=== PATIENT | female | born 1945 | race Caucasian/White ===

== ENCOUNTER → 2017-03-15 | Outpatient (CLI) | payer MEDICARE | END | disposition home or self-care (01) | LOC: CFH 10:15 | PROVIDERS: ATTEND Internal Medicine | DX: Z12.31 Encounter for screening mammogram for malignant neoplasm of breast (principal) | CPT/HCPCS: G0202 ==

== ENCOUNTER → 2018-02-28 | Outpatient (CLI) | payer MEDICARE | END | disposition home or self-care (01) | LOC: CFH 15:36 | PROVIDERS: ATTEND Internal Medicine Critical Care Medicine | DX: I08.0 Rheumatic disorders of both mitral and aortic valves (principal); I10 Essential (primary) hypertension; J44.9 Chronic obstructive pulmonary disease, unspecified | CPT/HCPCS: 93306 ==

== ENCOUNTER → 2018-03-05 | Outpatient (CLI) | payer MEDICARE | LOC: CFH 13:34 | PROVIDERS: ATTEND Internal Medicine Critical Care Medicine | DX: R06.02 Shortness of breath (principal); M79.89 Other specified soft tissue disorders ==

== ENCOUNTER → 2018-03-14 | Outpatient (CLI) | payer MEDICARE | END | disposition home or self-care (01) | LOC: CFH 14:10 | PROVIDERS: ATTEND Nurse Practitioner | DX: M19.171 Post-traumatic osteoarthritis, right ankle and foot (principal) ==

== ENCOUNTER → 2018-07-03 | Outpatient (CLI) | payer MEDICARE | END | disposition home or self-care (01) | LOC: CFH 11:27 | PROVIDERS: ATTEND Nurse Practitioner | DX: Z12.31 Encounter for screening mammogram for malignant neoplasm of breast (principal) | CPT/HCPCS: 77067 ==

== ENCOUNTER → 2018-07-16 | Outpatient (CLI) | payer MEDICARE | END | disposition home or self-care (01) | LOC: CFH 14:46 | PROVIDERS: ATTEND Family Medicine | DX: R92.8 Other abnormal and inconclusive findings on diagnostic imaging of breast (principal) | CPT/HCPCS: 77065 ==

== ENCOUNTER → 2018-09-17 | Outpatient (CLI) | payer MEDICARE ==
[~2018-09-17] MED LIST: LIDOCAINE 1%, 20ML ONE; LIDOCAINE 1%-EPI 1:100K, 20ML ONE; SODIUM BICARBONATE 4.0%, 5ML ONE
== END | disposition home or self-care (01) ==
LOC: CFH 10:16
PROVIDERS: ATTEND Family Medicine
DX: D24.2 Benign neoplasm of left breast (principal)
CPT/HCPCS: 19081; 77065; 88305; J3490; 82962

== ENCOUNTER → 2018-10-02 | Outpatient (CLI) | payer MEDICARE ==
[~2018-10-02] MED LIST changes: +ACET325T14 PO; +AMLO10TA8 PO; -LIDOCAINE 1%, 20ML ONE; -LIDOCAINE 1%-EPI 1:100K, 20ML ONE; +LOSA100T14 PO; -SODIUM BICARBONATE 4.0%, 5ML ONE; +TRAM50TA2 PO; +UMEC1DIS INH
[2018-10-02 14:55] LABS: ALANINE AMINOTRANSFERASE 29 U/L (12-78); ALBUMIN 3.5 g/dL (3.4-5.0); ANION GAP 7 mmol/L (5-15); CALCIUM 9.7 mg/dL (8.5-10.1); CHLORIDE 109 mmol/L (98-107)
[2018-10-02 14:58] LABS: ALKALINE PHOSPHATASE 128 U/L (45-117); BILIRUBIN,TOTAL 0.8 mg/dL (0.2-1.0); CREATININE 0.83 mg/dL (0.55-1.02); TOTAL PROTEIN 7.3 g/dL (6.4-8.2)
== END | disposition home or self-care (01) ==
LOC: STAR 13:02
PROVIDERS: ATTEND Orthopaedic Surgery
DX: Z01.818 Encounter for other preprocedural examination (principal); M19.171 Post-traumatic osteoarthritis, right ankle and foot
CPT/HCPCS: 36415; 80053; 93005

== ENCOUNTER 2018-11-03 08:24 | Inpatient (IN) | payer MEDICARE ==
[~2018-11-03] VITALS: Ht 167.6 cm; Wt 80.2 kg
[~2018-11-03 08:24] MED LIST changes: +ALBUTEROL INH
[2018-11-03 08:58] LABS: BASOPHILS # (AUTO) 0.02 x10^3/uL (0-0.1); BASOPHILS % (AUTO) 0 % (0-1); EOSINOPHILS # (AUTO) 0.02 x10^3/uL (0-0.4); EOSINOPHILS % (AUTO) 0 % (1-7); LYMPHOCYTES # (AUTO) 0.82 x10^3/uL (1-3.4); LYMPHOCYTES % (AUTO) 6 % (22-44); MD NO; MEAN CORPUSCULAR HEMOGLOBIN 32.5 pg (27.0-34.8); MEAN CORPUSCULAR HGB CONC 33.4 g/dL (32.4-35.8); MEAN CORPUSCULAR VOLUME 97.3 fL (80-100); MEAN PLATELET VOLUME 7.9 fL (7.4-10.4); MONOCYTES # (AUTO) 0.64 x10^3/uL (0.2-0.8); MONOCYTES % (AUTO) 5 % (2-9); NEUTROPHILS # (AUTO) 12.41 x10^3/uL (1.8-6.8); NEUTROPHILS % (AUTO) 89 % (42-75); PLATELET COUNT 441 x10^3/uL (130-400); RED BLOOD COUNT 4.43 x10^6/uL (3.82-5.3)
[2018-11-03] MEDS ORDERED: MORPHINE SULFATE 4 MG/ML, 1ML ONE ×2 (08:59→12:44)
[2018-11-03] MEDS ORDERED: ACETAMINOPHEN 500 MG TABLET PO ONE (09:00)
[2018-11-03] MEDS ORDERED: SODIUM CHLORIDE FLUSH 10ML SYR IVF ONE (09:00)
[2018-11-03] MEDS ORDERED: ACETAMINOPHEN 500 MG TABLET ONE (09:00)
[2018-11-03] MEDS: MORPHINE SULFATE 4 MG/ML, 1ML IVPush PRN ×3 (09:04→12:48)
[2018-11-03 09:09] LABS: ALBUMIN 2.5 g/dL (3.4-5.0); ANION GAP 9 mmol/L (5-15); CALCIUM 9.3 mg/dL (8.5-10.1); CHLORIDE 105 mmol/L (98-107); D-DIMER 4.3 ug/mlFEU (0.00-0.52); INTERNATIONAL NORMALIZED RATIO 1.15 (0.93-1.1)
--- NOTE | 2018-11-03 09:09 | NUR ---
Recieved report from SOLANGE Espinoza. All questions answered. Pt resting on gurney connected to NIBP, property assessment monitor, and spo2%. Pt c/o left upper flank pain post surgery on right foot. Pt has been on 3-4 L of oxygen on CPAP at home and was at 85%. Pt is on 4 L oxygen via nasal cannula and is at 96%. Pt is hot to touch and febrile with 102.1 F rectal temp. Provided medications per EMAR. ED MD verbal order stated to "provide your descretion of pain medication to pt regarding mg." Discussed with pt. Pt states, "Lets start of with 2 mg of the pain medication, if I need more we can use the rest." ED MD aware. Provided 2mg of pain medication per EMAR. Call light within reach. All safety measures in place. NADN. Pt waiting for CT.
[2018-11-03 09:17] LABS: ALANINE AMINOTRANSFERASE 21 U/L (12-78); ALKALINE PHOSPHATASE 601 U/L (45-117); BILIRUBIN,TOTAL 1.4 mg/dL (0.2-1.0); CREATININE 0.81 mg/dL (0.55-1.02); TOTAL PROTEIN 7.7 g/dL (6.4-8.2); TROPONIN I < 0.015 ng/mL (0.000-0.045)
[2018-11-03] MEDS ORDERED: AZITHROMYCIN 500 MG in SODIUM CHLORIDE 0.9% 250 ML IV ONE (09:30)
[2018-11-03] MEDS ORDERED: CEFTRIAXONE PMX 1GM/50ML 50 ML IV ONE (09:30)
--- NOTE | 2018-11-03 09:32 | NUR ---
Discussed plan of care with ED MD. PT's vital signs not indicative of starting PIV fluids at this time, per ED MD. Waiting for blood cultures, lactic acid, and procalcitonin labs to result per ED MD. Per ED MD, "do not give PIV fluids at this time."
[2018-11-03] MEDS ORDERED: CEFTRIAXONE PMX 1GM/50ML 50 ML ONE (09:49)
--- NOTE | 2018-11-03 10:02 | NUR ---
Provided remaining 2mg of pain medication per EMAR per pt request. ED MD aware. Pt has PIV medicaitons infusing per EMAR. Pt transported on gurney to CT at this time.
[2018-11-03] MEDS ORDERED: OMNIPAQUE 350 MG/ML, 100ML BOTTLE ONE (10:15)
--- NOTE | 2018-11-03 10:17 | NUR ---
Pt back to room from CT. Pt reconnected to all monitors. Pt states, "I am more comfortable now." NADN. No needs requested. All safety measures in place. Call light within reach.
[2018-11-03 10:49] LABS: RAPID INFLUENZA A Negative (Negative); RAPID INFLUENZA B Negative (Negative)
[2018-11-03] MEDS ORDERED: APIXABAN 5 MG TABLET ONE (11:14)
[2018-11-03] MEDS: APIXABAN 5 MG TABLET PO SCH ×2 (11:29→23:35)
[2018-11-03] MEDS ORDERED: SODIUM CHLORIDE 0.9% 1,000ML IVBOLUS ONE (11:30)
--- NOTE | 2018-11-03 12:41 | NUR ---
PIV medications and PIV NS bolous finished infusing per EMAR. Provided pt with hot blanka per request. Pt appreciative.
[2018-11-03] MEDS: SODIUM CHLORIDE 0.9% 1,000 ML IV SCH ×2 (12:58→22:52)
[2018-11-03] MEDS: AZITHROMYCIN 500 MG in SODIUM CHLORIDE 0.9% 250 ML IV SCH (13:00)
[2018-11-03] MEDS ORDERED: LABETALOL 5MG/ML, 20ML IVPush PRN (13:00)
[2018-11-03] MEDS ORDERED: ACETAMINOPHEN 325 MG TABLET PO PRN (13:00)
[2018-11-03] MEDS ORDERED: BISACODYL 10 MG SUPP PR PRN (13:00)
[2018-11-03] MEDS ORDERED: ENALAPRILAT 1.25 MG/ML, 2ML IVPush PRN (13:00)
[2018-11-03] MEDS ORDERED: POLYETHYLENE GLYCOL 17 GM PACKET PO PRN (13:00)
[2018-11-03] MEDS: CEFTRIAXONE PMX 1GM/50ML 50 ML IV SCH (13:00)
[2018-11-03 13:14] LABS: GAMMA GLUTAMYL TRANSPEPTIDASE 184 U/L (5-55)
[2018-11-03 13:18] LABS: FREE T4 (FREE THYROXINE) 1.53 ng/dL (0.76-1.46); TROPONIN I < 0.015 ng/mL (0.000-0.045)
--- NOTE | 2018-11-03 14:09 | NUR ---
Pt up to bedside commode one stand by assistance. NADN. Pt back to [facility] connected to SPO2% and teletypesetter monitor. Pt asleep on [place]. Call light within reach. All safety measures in place. No needs expressed at this time.
--- NOTE | 2018-11-03 14:17 | NUR ---
Provided report to SOLANGE Gil. All questions answered. Pt ready to transfer to floor from ED.
--- NOTE | 2018-11-03 14:30 | NUR ---
Pt transported to floor from ED and left with all personal belongings.
[2018-11-03] MEDS ORDERED: BACLOFEN 10 MG TABLET ONE (15:18)
[2018-11-03] MEDS: BACLOFEN 10 MG TABLET PO PRN ×2 (15:23→23:36)
[2018-11-03 15:27] VITALS: BP 108/65
[2018-11-03] MEDS: GABAPENTIN 100 MG CAPSULE PO PRN ×2 (17:58→23:35)
[2018-11-03 18:39] LABS: TROPONIN I < 0.015 ng/mL (0.000-0.045)
[2018-11-03 19:48] VITALS: BP 104/66
[2018-11-03] MEDS ORDERED: ALBUTEROL/IPRATROPIUM 2.5MG/0.5MG, 3 ML ONE (20:01)
[2018-11-03 21:30] LABS: MICROSCOPIC NOT IND
[2018-11-03 21:34] LABS: CULTURE INDICATED? NO
[2018-11-03] MEDS: TEMAZEPAM 15 MG CAPSULE PO PRN (23:35)
[2018-11-03] MEDS: ALBUTEROL/IPRATROPIUM 2.5MG/0.5MG, 3 ML NPPB SCH (23:50)
[2018-11-04 02:41] VITALS: BP 108/71
[2018-11-04 05:34] LABS: BASOPHILS # (AUTO) 0.05 x10^3/uL (0-0.1); BASOPHILS % (AUTO) 1 % (0-1); EOSINOPHILS # (AUTO) 0.21 x10^3/uL (0-0.4); EOSINOPHILS % (AUTO) 2 % (1-7); LYMPHOCYTES # (AUTO) 1.66 x10^3/uL (1-3.4); LYMPHOCYTES % (AUTO) 17 % (22-44); MD NO; MEAN CORPUSCULAR VOLUME 97.2 fL (80-100); MEAN PLATELET VOLUME 7.9 fL (7.4-10.4); MONOCYTES # (AUTO) 0.75 x10^3/uL (0.2-0.8); MONOCYTES % (AUTO) 8 % (2-9); NEUTROPHILS # (AUTO) 7.05 x10^3/uL (1.8-6.8); NEUTROPHILS % (AUTO) 73 % (42-75); PLATELET COUNT 364 x10^3/uL (130-400); RED BLOOD COUNT 3.62 x10^6/uL (3.82-5.3); RED CELL DISTRIBUTION WIDTH 13.8 % (9.6-15.2)
[2018-11-04 05:36] LABS: ANION GAP 6 mmol/L (5-15); CHLORIDE 109 mmol/L (98-107)
[2018-11-04 05:41] LABS: ALANINE AMINOTRANSFERASE 16 U/L (12-78); ALKALINE PHOSPHATASE 490 U/L (45-117); BILIRUBIN,TOTAL 0.8 mg/dL (0.2-1.0); CALCIUM 8.5 mg/dL (8.5-10.1); CHOL/HDL RATIO 5.4; CHOLESTEROL, TOTAL 114 mg/dL (140-239); CREATININE 0.72 mg/dL (0.55-1.02); HDL CHOL % 18 % (28-40); HDL CHOLESTEROL (DIRECT) 21 mg/dL (40-60); LDL CHOLESTEROL,CALCULATED 70 mg/dL (54-169); LDL/HDL RATIO 3.3 (0.5-3.0); TOTAL PROTEIN 6.4 g/dL (6.4-8.2); TRIGLYCERIDES 113 mg/dL (50-200); VLDL CHOLESTEROL 23 mg/dL (0-25)
[2018-11-04] MEDS ORDERED: MAGNESIUM SULFATE 3 GM in SODIUM CHLORIDE 0.9% 100 ML IV ONE (07:00)
[2018-11-04] MEDS: ALBUTEROL/IPRATROPIUM 2.5MG/0.5MG, 3 ML NPPB SCH ×5 (07:40→23:00)
[2018-11-04 08:05] VITALS: BP 104/65
[2018-11-04] MEDS: (Umeclidinium Brm/Vilanterol Tr (Anoro Ellipta 62.5-25 Mcg Inh HOMEMEDPO SCH (09:00)
[2018-11-04] MEDS: APIXABAN 5 MG TABLET PO SCH ×2 (09:43→20:42)
[2018-11-04] MEDS: GABAPENTIN 100 MG CAPSULE PO PRN ×2 (09:43→18:01)
[2018-11-04] MEDS: BACLOFEN 10 MG TABLET PO PRN ×2 (09:46→18:01)
[2018-11-04] MEDS: CEFTRIAXONE PMX 1GM/50ML 50 ML IV SCH (13:14)
[2018-11-04] MEDS: AZITHROMYCIN 500 MG in SODIUM CHLORIDE 0.9% 250 ML IV SCH (14:18)
[2018-11-04 16:00] VITALS: BP 105/70
[2018-11-04] MEDS: SODIUM CHLORIDE 0.9% 1,000 ML IV SCH (19:54)
[2018-11-04 19:57] VITALS: BP 105/70
[2018-11-05] MEDS: GABAPENTIN 100 MG CAPSULE PO PRN ×3 (01:04→21:19)
[2018-11-05] MEDS: TEMAZEPAM 15 MG CAPSULE PO PRN ×2 (01:05→21:18)
[2018-11-05 01:52] VITALS: BP 129/60
[2018-11-05] MEDS: SODIUM CHLORIDE 0.9% 1,000 ML IV SCH ×2 (05:46→15:23)
[2018-11-05] MEDS: ALBUTEROL/IPRATROPIUM 2.5MG/0.5MG, 3 ML NPPB SCH ×5 (06:00→21:49)
[2018-11-05 06:43] LABS: ALBUMIN 1.8 g/dL (3.4-5.0); ANION GAP 8 mmol/L (5-15); CALCIUM 8.3 mg/dL (8.5-10.1); CHLORIDE 114 mmol/L (98-107); CREATININE 0.48 mg/dL (0.55-1.02)
[2018-11-05] MEDS ORDERED: GUAIFENESIN 100 MG/5 ML, 10ML UDC PO PRN (07:30)
[2018-11-05 08:27] VITALS: BP 116/73
[2018-11-05] MEDS: BACLOFEN 10 MG TABLET PO PRN ×2 (08:39→21:19)
[2018-11-05] MEDS: APIXABAN 5 MG TABLET PO SCH ×2 (08:40→21:19)
[2018-11-05] MEDS: (Umeclidinium Brm/Vilanterol Tr (Anoro Ellipta 62.5-25 Mcg Inh HOMEMEDPO SCH (09:00)
[2018-11-05 13:17] VITALS: BP 121/65
[2018-11-05 13:29] VITALS: BP 121/65
[2018-11-05] MEDS: CEFTRIAXONE PMX 1GM/50ML 50 ML IV SCH (14:37)
[2018-11-05] MEDS: OXYcodone IR 5MG TABLET PO PRN (14:44)
[2018-11-05] MEDS: AZITHROMYCIN 500 MG in SODIUM CHLORIDE 0.9% 250 ML IV SCH (15:23)
[2018-11-05] MEDS: DOCUSATE 100 MG CAPSULE PO PRN ×2 (15:35→21:19)
[2018-11-05 19:05] VITALS: BP 130/65
[2018-11-06 00:50] VITALS: BP 136/75
[2018-11-06] MEDS: SODIUM CHLORIDE 0.9% 1,000 ML IV SCH (01:46)
[2018-11-06 06:33] LABS: BASOPHILS # (AUTO) 0.06 x10^3/uL (0-0.1); BASOPHILS % (AUTO) 1 % (0-1); EOSINOPHILS # (AUTO) 0.27 x10^3/uL (0-0.4); EOSINOPHILS % (AUTO) 5 % (1-7); LYMPHOCYTES # (AUTO) 1.55 x10^3/uL (1-3.4); LYMPHOCYTES % (AUTO) 26 % (22-44); MD NO; MEAN CORPUSCULAR HEMOGLOBIN 33.3 pg (27.0-34.8); MEAN CORPUSCULAR HGB CONC 34.4 g/dL (32.4-35.8); MEAN CORPUSCULAR VOLUME 96.8 fL (80-100); MEAN PLATELET VOLUME 7.8 fL (7.4-10.4); MONOCYTES # (AUTO) 0.56 x10^3/uL (0.2-0.8); MONOCYTES % (AUTO) 9 % (2-9); NEUTROPHILS # (AUTO) 3.56 x10^3/uL (1.8-6.8); NEUTROPHILS % (AUTO) 59 % (42-75); PLATELET COUNT 316 x10^3/uL (130-400); RED BLOOD COUNT 3.37 x10^6/uL (3.82-5.3); RED CELL DISTRIBUTION WIDTH 13.8 % (9.6-15.2)
[2018-11-06 06:45] LABS: ANION GAP 7 mmol/L (5-15); CALCIUM 8.4 mg/dL (8.5-10.1); CHLORIDE 115 mmol/L (98-107)
[2018-11-06 06:49] LABS: ALANINE AMINOTRANSFERASE 11 U/L (12-78); ALKALINE PHOSPHATASE 364 U/L (45-117); BILIRUBIN,TOTAL 1.1 mg/dL (0.2-1.0); CREATININE 0.58 mg/dL (0.55-1.02); TOTAL PROTEIN 5.7 g/dL (6.4-8.2)
[2018-11-06] MEDS: ALBUTEROL/IPRATROPIUM 2.5MG/0.5MG, 3 ML NPPB SCH ×3 (07:25→14:20)
[2018-11-06 07:54] VITALS: BP 147/75
[2018-11-06] MEDS: (Umeclidinium Brm/Vilanterol Tr (Anoro Ellipta 62.5-25 Mcg Inh HOMEMEDPO SCH (09:00)
[2018-11-06] MEDS: DOCUSATE 100 MG CAPSULE PO PRN (10:26)
[2018-11-06] MEDS: GABAPENTIN 100 MG CAPSULE PO PRN ×2 (10:35→17:08)
[2018-11-06] MEDS: APIXABAN 5 MG TABLET PO SCH (10:35)
[2018-11-06] MEDS: BACLOFEN 10 MG TABLET PO PRN ×2 (10:36→17:08)
[2018-11-06] MEDS ORDERED: AMOX1TAB64 PO (13:08)
[2018-11-06] MEDS ORDERED: BACL-19 PO (13:08)
[2018-11-06] MEDS ORDERED: ACET325T14 PO (13:08)
[2018-11-06] MEDS ORDERED: DOCU-131 PO (13:08)
[2018-11-06] MEDS ORDERED: APIX5TAB PO (13:08)
[2018-11-06] MEDS ORDERED: GABA-826 PO (13:08)
[2018-11-06 14:11] VITALS: BP 133/79
[2018-11-06] MEDS: CEFTRIAXONE PMX 1GM/50ML 50 ML IV SCH (14:14)
[2018-11-06] MEDS ORDERED: TRAM50TA2 PO (14:29)
[2018-11-06] MEDS ORDERED: TEMA15CA6 PO (14:29)
[2018-11-06] MEDS ORDERED: AMLO-150 PO (14:29)
[2018-11-06] MEDS: OXYcodone IR 5MG TABLET PO PRN (14:34)
[2018-11-06] MEDS: AZITHROMYCIN 500 MG in SODIUM CHLORIDE 0.9% 250 ML IV SCH (15:09)
[2018-11-11] MEDS ORDERED: APIXABAN 5 MG TABLET PO SCH (09:00)
== END 2018-11-06 17:30 | DRG 871 ==
LOC: ED 10:47 → EDIP 10:48 → ED 11:02 → 4WST 14:35
PROVIDERS: ADMIT Hospitalist; ATTEND Hospitalist
DX: A41.9 Sepsis, unspecified organism (principal); I26.99 Other pulmonary embolism without acute cor pulmonale; J18.9 Pneumonia, unspecified organism; J96.21 Acute and chronic respiratory failure with hypoxia; J44.0 Chronic obstructive pulmonary disease with (acute) lower respiratory infection; J98.11 Atelectasis; R74.8 Abnormal levels of other serum enzymes; G47.33 Obstructive sleep apnea (adult) (pediatric); I10 Essential (primary) hypertension; E83.42 Hypomagnesemia; Z60.2 Problems related to living alone; I27.20 Pulmonary hypertension, unspecified; Z79.01 Long term (current) use of anticoagulants; Z87.891 Personal history of nicotine dependence; Z99.81 Dependence on supplemental oxygen; Z90.49 Acquired absence of other specified parts of digestive tract; Z79.899 Other long term (current) drug therapy
CPT/HCPCS: 36415; 71045; 71275; 76700; 80048; 80053; 80061; 81003; 82040; 82977; 83605; 83690; 83735; 83880; 84145; 84439; 84443; 84484; 85025; 85379; 85610; 85730; 87040; 87400; 93005; 93306; 94640; 96365; 96366; 96368; 96375; 96376; G0378; J0456; J0696; J3475; J7620; Q9967; J7030; J7050

== ENCOUNTER 2020-01-27 06:32 | Day surgery (SDC) | payer MEDICARE ==
[2020-01-25 15:52] LABS: ALANINE AMINOTRANSFERASE 58 U/L (12-78); ALBUMIN 3.5 g/dL (3.4-5.0); ANION GAP 7 mmol/L (5-15); CALCIUM 9.2 mg/dL (8.5-10.1); CHLORIDE 109 mmol/L (98-107); CREATININE 0.89 mg/dL (0.55-1.02)
[2020-01-25 15:54] LABS: ALKALINE PHOSPHATASE 156 U/L (45-117); BILIRUBIN,TOTAL 0.6 mg/dL (0.2-1.0)
[~2020-01-27] VITALS: Ht 167.6 cm; Wt 88.2 kg
[~2020-01-27 06:32] MED LIST changes: +AMLO-150 PO; +AMLO10TA4 PO; +AMOX1TAB64 PO; +APIX5TAB PO; +ASCO10004 PO; +BACL-19 PO; +CALC1CAP8 PO; +CHOL10003 PO; +DOCU-131 PO; +GABA-826 PO; +LOSA50TA14 PO; +TEMA15CA6 PO; +TROS20TA2 PO; +VITAMIN B PO; +ZINC PO; +[UNRECOGNIZED DRUG - OTHER] PO
[2020-01-27] MEDS ORDERED: LACTATED RINGERS 1,000 ML IV SCH (07:20)
[2020-01-27 07:25] VITALS: BP 145/81
[2020-01-27] MEDS ORDERED: CHLORHEXIDINE 15 ML UDC MM ONE (07:30)
[2020-01-27] MEDS ORDERED: LIDOCAINE-MPF 1%, 2ML INFIL ONE (07:30)
[2020-01-27] MEDS ORDERED: MIDAZOLAM 1 MG/ML, 2ML ONE (07:42)
[2020-01-27] MEDS ORDERED: PROPOFOL 10 MG/ML, 20ML ONE ×2 (07:43)
[2020-01-27] MEDS ORDERED: PROMETHAZINE 25 MG/ML, 1ML IVPush PRN (08:00)
[2020-01-27] MEDS ORDERED: ACETAMINOPHEN 325 MG TABLET PO PRN (08:00)
[2020-01-27] MEDS ORDERED: FENTANYL PF 100 MCG/2ML IV PRN (08:00)
[2020-01-27] MEDS ORDERED: OXYcodone 5 MG/5 ML ORAL.SOL UDC PO PRN (08:00)
[2020-01-27] MEDS ORDERED: CHLORHEXIDINE 15 ML UDC ONE (08:19)
[2020-01-27] MEDS ORDERED: FENTANYL PF 100 MCG/2ML ONE (09:37)
== END 2020-01-27 10:45 | disposition home or self-care (01) ==
LOC: OUT 06:32
PROVIDERS: ATTEND Internal Medicine
DX: Z12.11 Encounter for screening for malignant neoplasm of colon (principal); D12.4 Benign neoplasm of descending colon; D12.5 Benign neoplasm of sigmoid colon; K57.30 Diverticulosis of large intestine without perforation or abscess without bleeding; K64.4 Residual hemorrhoidal skin tags; I10 Essential (primary) hypertension; J44.9 Chronic obstructive pulmonary disease, unspecified; Z79.899 Other long term (current) drug therapy; Z80.0 Family history of malignant neoplasm of digestive organs
CPT/HCPCS: 36415; 45385; 80053; 88305; 93005; J2704; J3010; J2250

== ENCOUNTER → 2021-01-13 | Outpatient (CLI) | payer MEDICARE ==
[~2021-01-13] MED LIST changes: +AMLO-211 PO; -AMLO10TA8 PO; +ASCO100018 PO; -ASCO10004 PO
== END | disposition home or self-care (01) ==
LOC: CFH 09:14
PROVIDERS: ATTEND Family Medicine
DX: Z12.31 Encounter for screening mammogram for malignant neoplasm of breast (principal)
CPT/HCPCS: 77063; 77067